=== PATIENT | female | born 1950 | race Caucasian/White ===

== ENCOUNTER → 2019-05-12 | Outpatient (CLI) | payer OTHER ==
[~2019-05-12] MED LIST: ACTONEL; ATEN25 PO; Aspir 8181 MG PO; CADUET PO; CALMAGZIN PO; CONEST.9 PO; ESOM20 PO; FISH1000 PO; FURO20 PO; NEXIUM PO; POTA10T PO; PREMARIN PO; Prilosec Otc20 MG PO; TUMERSAID TABL1 EACH PO
== END | disposition home or self-care (01) ==
LOC: LAB SHORT 09:42 → LAB 09:42
DX: E11.9 Type 2 diabetes mellitus without complications (principal)
CPT/HCPCS: 82043